=== PATIENT | female | born 1995 | race African-American/Black ===

== ENCOUNTER 2017-07-30 20:51 | Emergency (ER) | payer MEDICAID, OTHER ==
[~2017-07-30] VITALS: Ht 162.6 cm; Wt 59.0 kg
[2017-07-31] MEDS ORDERED: LIDOCAINE HCL 1% 20ML VIAL (Pyxis) INJ INFIL ONE (02:15)
[2017-07-31] MEDS ORDERED: CEFTRIAXONE SODIUM 250 MG/VIAL IM ONE (02:15)
[2017-07-31] MEDS ORDERED: AZITHROMYCIN 500 MG TABLET PO ONE (02:15)
[2017-07-31 02:37] LABS: CHLORIDE 111 mEq/L (98-107)
[2017-07-31 02:41] LABS: BASOPHILS % 0.8 % (0.0-2.0); EOSINOPHILS % 3.4 % (0.0-5.0); HEMATOCRIT. 31.4 % (36.0-48.0); HEMOGLOBIN. 10.3 g/dL (12.0-16.0); MEAN CORPUSCULAR HEMOGLOBIN 28.4 pg (28.0-32.0); MEAN CORPUSCULAR VOLUME 86.5 fL (81.0-99.0); MEAN PLATELET VOLUME 7.3 fl (7.4-10.4); MONOCYTES % 9.9 % (2.0-8.0); NEUTROPHILS % 37.9 % (40.0-76.0); PLATELET 254 x1000/uL (130-400); RED BLOOD CELL COUNT 3.63 mill/uL (4.2-5.4); RED CELL DISTRIBUTION WIDTH 16.1 % (11.6-14.6)
[2017-07-31 02:45] LABS: CARBON DIOXIDE 27 mEq/L (21-32)
[2017-07-31 02:50] LABS: CLARITY URINE CLEAR (CLEAR); COLOR URINE YELLOW (YELLOW); GLUCOSE URINE NEGATIVE (NEGATIVE); KETONES URINE NEGATIVE (NEGATIVE); LEUKOCYTE ESTERASE URINE NEGATIVE (NEGATIVE); NITRITE URINE NEGATIVE (NEGATIVE); OCCULT BLOOD URINE NEGATIVE (NEGATIVE); PROTEIN URINE NEGATIVE (NEGATIVE); SPECIFIC GRAVITY URINE 1.017 (1.005-1.030); UROBILINOGEN URINE 0.2 E.U./dL (0.2-1.0)
[2017-07-31 02:53] LABS: HCG SCREEN NEGATIVE
[2017-07-31] MEDS ORDERED: CEFTRIAXONE SODIUM 250 MG/VIAL IM SCH (03:02)
[2017-07-31 04:08] VITALS: BP 112/73
[2017-08-02 04:26] LABS: CHLAMYDIA TRACHOMATIS NAA Positive (Negative); NEISSERIA GONORRHOEAE NAA Negative (Negative)
== END 2017-07-31 04:09 | disposition home or self-care (01) ==
LOC: ER 21:44
DX: A57 Chancroid (principal); J45.909 Unspecified asthma, uncomplicated; F12.10 Cannabis abuse, uncomplicated; Z98.890 Other specified postprocedural states
CPT/HCPCS: 36415; 80048; 81003; 84703; 85025; 87210; 87491; 87591; 96372; 99284; J0696; J3490; Z7610